=== PATIENT | female | born 1975 | race Caucasian/White ===

== ENCOUNTER → 2017-08-16 | Day surgery (SDC) | payer MEDICARE, OTHER ==
[2017-08-15 15:34] LABS: ANION GAP 11.9 mmol/L (8-16); CALCIUM 9.4 mg/dL (8.4-10.2); CREATININE, SERUM 1.1 mg/dL (0.57-1.11); POTASSIUM 3.9 mmol/L (3.5-5.1)
[~2017-08-16] MED LIST: ABILIFY10 MG PO; BELLADONNA/OPIUM 60 MG SUPP PR ONE; CEFTRIAXONE SOD 1 GM VIAL ONE; DESFLURANE 240 ML BTL INH ONE; DEXAMETHASONE SOD PHOS INJ 4 MG/ML VIAL ONE; FENTANYL CITRATE/PF 100MCG/2 ML INJ ONE; GENTAMICIN 80MG/NS 100 ML 100 ML IV ONE; GLYCOPYRROLATE INJ 1MG/ 5 ML SYR ONE; IOPAMIDOL 610MG/1ML 300 MG/ML VIAL IV ONE; LAMOTRIGINE100 MG PO; LASIX20 MG PO; LIDOCAINE HCL 2% LOCAL INJ 5 ML SDV VIAL INJ ONE; MEPERIDINE HCL INJ 50 MG/ML INJ ONE; METOCLOPRAMIDE HCL 10 MG/2ML VIAL ONE; MIDAZOLAM HCL 2 MG/2 ML VIAL ONE; OMEPRAZOLE20 MG PO; ONDANSETRON HCL INJ 2 MG/ML VIAL ONE; PROPOFOL IV EMULSION 10 MG/ML 20 ML VIAL ONE; SIMVASTATIN80 MG PO; ULTRAM 50MG50 MG PO
--- NOTE | 2017-08-16 09:48 | Diagnostic Imaging Report ---
PROCEDURE:X-RAY ABDOMEN - KUB COMPARISON:None. INDICATIONS:PREOPERATIVE CHEST XRAY FOR KIDNEY STONE SURGERY FINDINGS: Loop nephrostomy catheter overlies the upper pole of the left kidney. There are gallbladder clips. There is a 1.08 cm calcification in the medial aspect of the right kidney likely within the renal pelvis. There is a 3.6 mm left lower pole renal stone. There are no dilated loops of bowel to suggest obstruction. There are no masses. There is no evidence of free air. No acute osseous abnormalities are present. CONCLUSION: 1. No acute abdominal abnormality. 2. Bilateral renal lithiasis. Pavan Mckenna D.O. Dictated by: Pavan Mckenna D.O. on 08/16/2017 at 9:56 Electronically approved by: Pavan Mckenna D.O. on 08/16/2017 at 9:56
--- NOTE | 2017-10-07 08:51 | Operative Report ---
DATE OF PROCEDURE: August 16, 2017 PREOPERATIVE DIAGNOSES: 1. Right nephrolithiasis. 2. Urinary tract infections. 3. Right percutaneous nephrostomy. POSTOPERATIVE DIAGNOSES: 1. Right nephrolithiasis. 2. Urinary tract infections. 3. Right percutaneous nephrostomy. 4. Grade 2 cystocele. 5. Grade 1 rectocele. OPERATIONS PERFORMED: 1. Cystourethroscopy with left ureteral catheterization and retrograde ureteropyelography (separate procedure performed for the urinary tract infections). 2. Right flexible ureteropyeloscopy with holmium laser lithotripsy and placement of ureteral stent (separate procedure performed for the right nephrolithiasis). 3. Radiological services for supervision and interpretation of ureteroscopy. 4. Interpretation of retrograde ureteropyelography. 5. Nephrostograms and removal of nephrostomy under fluoroscopic guidance (separate procedure performed for the diagnosis of nephrostomy). 6. Pelvic examination under anesthesia. 7. Interpretation of nephrostograms. ANESTHESIA: General. COMPLICATIONS: None. CLINICAL SUMMARY: Gema uDarte is a 42-year-old woman who had right large obstructing nephrolithiasis. She underwent percutaneous nephrostomy placement on an emergent basis. The patient's infection had been cooled. She has been treated with antibiotics and she is brought for the above procedures. She understands the risks of bleeding, infection, injury to adjacent structures. She understands she will have a temporary indwelling ureteral stent that requires followup and removal. She understood all these risks and elected to proceed. OPERATIVE PROCEDURE IN DETAIL: Informed consent was verified. Gema Duarte was properly identified, taken to the operating room and placed on the cystoscopy table in supine position. Anesthesia was uneventfully begun. The patient was then carefully and gently repositioned in the dorsal lithotomy position with all pressure points well padded. Her genitalia were prepared and draped in usual sterile fashion. The 22.5-Kisw[place]ili cystoscope sheath with the obturator in place was atraumatically inserted in patient's urethra and bladder was drained. Panendoscopy of the urinary bladder revealed no suspicious mucosal lesions. No tumors, no stones, and no diverticula. Normally positioned and configured ureteral orifices were identified. A ureteral catheter was used to cannulate the left ureter, and retrograde ureteropyelograms were performed. It was then inserted in the right ureter and retrograde ureteropyelograms were performed. Guidewire was then placed into the right ureter, and over the guidewire, the flexible ureteroscope was then brought up and brought up to the level of the patient's proximal collecting system where we identified this very large stone. Holmium laser lithotripsy was performed. An extensive lithotripsy was performed. We fragmented this very large stone into numerous smaller fragments. With cystoscopic and fluoroscopic guidance, a right-sided indwelling ureteral stent was then placed. It was coiled in patient's kidney as well as patient's bladder. We then exposed the patient's right flank. We incised the sutures retaining the nephrostomy tube to the patient's skin. We then cut across the nephrostomy tube near the connector and then the nephrostomy tube was slid out under fluoroscopic guidance. The stent remained unchanged in good position throughout this maneuvering. Interpretation of retrograde ureteropyelography: Contrast was instilled in retrograde fashion bilaterally. The left side was unremarkable. There were no tumors, no stones, and no diverticula. Unobstructed drainage was observed fluoroscopically. The right hand side exhibited normal ureter up to the level of the patient's kidney stone, which exhibited a filling defect. The stent was in good position, coiled in patient's kidney as well as patient's bladder. At the end of the case, there was chronic-appearing fullness of the right collecting system. Interpretation of nephrostograms. Contrast was instilled. We opacified the nephrostomy tube. As we pulled out the nephrostomy tube, the nephrostomy tract was opacified as well. We expect this tract to seal as the patient has an indwelling ureteral stent. The patient's bladder was then drained. The cystoscope was withdrawn. Pelvic examination under anesthesia revealed a grade 2 cystocele, grade 1 rectocele. No abnormal palpable pelvic masses could be appreciated. Belladonna and opium suppository was placed and patient was uneventfully reversed from anesthesia and taken to recovery room in stable condition. Explicit postoperative instructions were given, and we will bring the patient back to the operating room at which point in time will perform another right ureteroscopy with potential laser lithotripsy, and hopefully be able to render the patient stent-free and stone-free. Job#: [id number] cc:JOSH JORDAN MD
== END | disposition home or self-care (01) ==
LOC: OR 05:00
PROVIDERS: ATTEND Urology
DX: N20.0 Calculus of kidney (principal); Z46.6 Encounter for fitting and adjustment of urinary device; N81.6 Rectocele; N81.10 Cystocele, unspecified; N39.0 Urinary tract infection, site not specified; N39.46 Mixed incontinence; G47.33 Obstructive sleep apnea (adult) (pediatric); E66.01 Morbid (severe) obesity due to excess calories; K21.9 Gastro-esophageal reflux disease without esophagitis; F31.9 Bipolar disorder, unspecified; F41.9 Anxiety disorder, unspecified; F17.210 Nicotine dependence, cigarettes, uncomplicated; Z01.812 Encounter for preprocedural laboratory examination
CPT/HCPCS: 36415; 50389; 52356; 74000; 74420; 80048; 81025; C2617; J0696; J1100; J1580; J2001; J2175; J2250; J2405; J2765; Q9967

== ENCOUNTER → 2020-09-12 | Outpatient (CLI) | payer MEDICARE, OTHER ==
[~2020-09-12] MED LIST changes: -BELLADONNA/OPIUM 60 MG SUPP PR ONE; -CEFTRIAXONE SOD 1 GM VIAL ONE; -DESFLURANE 240 ML BTL INH ONE; -DEXAMETHASONE SOD PHOS INJ 4 MG/ML VIAL ONE; -FENTANYL CITRATE/PF 100MCG/2 ML INJ ONE; -GENTAMICIN 80MG/NS 100 ML 100 ML IV ONE; -GLYCOPYRROLATE INJ 1MG/ 5 ML SYR ONE; -IOPAMIDOL 610MG/1ML 300 MG/ML VIAL IV ONE; -LIDOCAINE HCL 2% LOCAL INJ 5 ML SDV VIAL INJ ONE; -MEPERIDINE HCL INJ 50 MG/ML INJ ONE; -METOCLOPRAMIDE HCL 10 MG/2ML VIAL ONE; -MIDAZOLAM HCL 2 MG/2 ML VIAL ONE; -ONDANSETRON HCL INJ 2 MG/ML VIAL ONE; -PROPOFOL IV EMULSION 10 MG/ML 20 ML VIAL ONE
== END ==
LOC: LAB 14:56 → EDSTATUS 09-15 14:00
PROVIDERS: ATTEND Internal Medicine Gastroenterology
DX: Z01.818 Encounter for other preprocedural examination (principal); Z01.812 Encounter for preprocedural laboratory examination; Z20.822 Contact with and (suspected) exposure to COVID-19; K62.5 Hemorrhage of anus and rectum; K64.9 Unspecified hemorrhoids; R12 Heartburn; Z86.010 Personal history of colon polyps
CPT/HCPCS: U0002

== ENCOUNTER → 2020-09-26 | Day surgery (SDC) | payer MEDICARE, OTHER ==
[~2020-09-26] MED LIST changes: +HYOSCYAMINE 0.125 MG TAB ONE; +HYOSCYAMINE SULFATE 0.5 MG/ML INJ ONE; +LIDOCAINE HCL 2% LOCAL INJ 5 ML SDV VIAL INJ ONE; +PROPOFOL IV EMULSION 10 MG/ML 20 ML VIAL ONE
[2020-09-26 15:35] VITALS: BP 132/80
== END | disposition home or self-care (01) ==
LOC: OR 11:16
PROVIDERS: ATTEND Internal Medicine Gastroenterology
DX: K62.5 Hemorrhage of anus and rectum (principal); D12.4 Benign neoplasm of descending colon; D13.2 Benign neoplasm of duodenum; K29.70 Gastritis, unspecified, without bleeding; K29.80 Duodenitis without bleeding; K20.90 Esophagitis, unspecified without bleeding; K21.9 Gastro-esophageal reflux disease without esophagitis; K44.9 Diaphragmatic hernia without obstruction or gangrene; K57.30 Diverticulosis of large intestine without perforation or abscess without bleeding; K64.8 Other hemorrhoids; G47.33 Obstructive sleep apnea (adult) (pediatric); E78.5 Hyperlipidemia, unspecified; E66.01 Morbid (severe) obesity due to excess calories; N39.0 Urinary tract infection, site not specified; F41.0 Panic disorder [episodic paroxysmal anxiety]; F31.89 Other bipolar disorder; F17.210 Nicotine dependence, cigarettes, uncomplicated; Z01.810 Encounter for preprocedural cardiovascular examination; Z01.812 Encounter for preprocedural laboratory examination; Z20.828 Contact with and (suspected) exposure to other viral communicable diseases
CPT/HCPCS: 43239; 45385; 81025; 88305; 88312; 93005; J1980; J2001; J2704; U0002 ×2; 45378